=== PATIENT | male | born 1990 | race Caucasian/White ===

== ENCOUNTER 2018-09-01 13:46 | Emergency (ER) | payer BC ==
[2018-09-01 14:11] VITALS: BP 189/98
--- NOTE | 2018-09-01 14:20 | UC ---
UC General HPI - HPI Summary HPI Summary: hypertension x years out of his hypertensive medication for the past one year and hasn't feel the Rx due to not having medical insurance no chest pain ,no sob, no vision changes - History of Current Complaint Chief Complaint: UCGeneralIllness Stated Complaint: BLOOD PRESSURE CHECK Time Seen by Provider: 09/01/18 14:11 Hx Obtained From: Patient Onset/Duration: Gradual Onset, Other - for the past one year Timing: Constant Onset Severity: Moderate Current Severity: Moderate Pain Intensity: 0 Associated Signs & Symptoms: Positive: Back Pain. Negative: Abdominal Pain, Anticoagulation Therapy, Confusion, Cough, Chest Pain, Decreased Responsiveness , Dizziness, Diarrhea, Dysuria, Decreased Oral Intake, Diaphoresis, Edema, Fever , Headache, Hematemesis, Hemoptysis, Melena, Nausea, Palpitations, Weakness - Allergy/Home Medications Allergies/Adverse Reactions: Allergies Allergy/AdvReac Type Severity Reaction Status Date / Time No Known Allergies Allergy Verified 09/01/18 14:07 PMH/Surg Hx/FS Hx/Imm Hx Cardiovascular History: Hypertension - Surgical History Surgical History: None - Family History Known Family History: Positive: Hypertension - Social History Alcohol Use: None Substance Use Type: None Smoking Status (MU): Never Smoked Tobacco Review of Systems Constitutional: Negative Skin: Negative Eyes: Negative ENT: Negative Respiratory: Negative Is Patient Immunocompromised?: No All Other Systems Reviewed And Are Negative: Yes Physical Exam Triage Information Reviewed: Yes Appearance: Well-Appearing, No Pain Distress, Well-Nourished Vital Signs: Initial Vital Signs Temp 98.1 F 09/01/18 14:05 Pulse 127 09/01/18 14:05 Resp 22 09/01/18 14:05 BP 189/98 09/01/18 14:05 Pulse Ox 99 09/01/18 14:05 Vital Signs Reviewed: Yes Eye Exam: Normal Eyes: Positive: Conjunctiva Clear ENT Exam: Normal ENT: Positive: Normal ENT inspection, Hearing grossly normal, Pharynx normal Neck exam: Normal Neck: Positive: Supple, Nontender, No Lymphadenopathy Respiratory: Positive: Chest non-tender, Lungs clear, Normal breath sounds Cardiovascular: Positive: RRR, No Murmur, Pulses Normal Neurological: Positive: Alert, Muscle Tone Normal Skin Exam: Normal Course/Dx - Differential Dx - Multi-Symptom Provider Diagnoses: Hypertension Discharge - Sign-Out/Discharge Documenting (check all that apply): Patient Departure All imaging exams completed and their final reports reviewed: No Studies - Discharge Plan Condition: Stable Disposition: HOME Prescriptions: Lisinopril [Prinivil] 5 mg PO DAILY #30 tablet Patient Education Materials: Hypertension (ED) Referrals: No Primary Care Phys,NOPCP [Primary Care Provider] - 2 Weeks - Billing Disposition and Condition Condition: STABLE Disposition: Home
== END 2018-09-01 14:22 | disposition home or self-care (01) ==
LOC: UCCORT 13:46
DX: I10 Essential (primary) hypertension (principal)
CPT/HCPCS: 99202; G0463